=== PATIENT | male | born 1975 | race Caucasian/White ===

== ENCOUNTER 2021-10-21 15:43 | Emergency (ER) | payer BC, SELFPAY ==
[2021-10-21 15:58] VITALS: BP 148/79; PULSE 78; RESP 18; TEMP 36.6; O2SAT 98; BMI 25.7
--- NOTE | 2021-10-21 23:26 | ED_ITS ---
HPI - Wound/Laceration General Chief Complaint: Wound/Laceration Stated Complaint: finger lac Time Seen by Provider: 10/21/21 22:49 Source: patient Mode of arrival: ambulatory Limitations: no limitations History of Present Illness HPI narrative: 46-year-old male who reports he is not up-to-date on tetanus presenting to the ED with complaints of right hand little finger/5th digit laceration that occurred prior to arrival when he was stretching his door at his house he reports that he might of cut himself with the metal not. He denies any thoughts of foreign bodies. He denies any bony tenderness. He denies any other symptoms complaints concerns at this time. Onset (ago): hour(s) (Prior to arrival) Extremity Location: right: hand Place: home Patient tetanus UTD: No Context: accidental Associated symptoms: none Treatments prior to arrival: bandage Related Data Previous Rx's Medication Instructions Recorded cephalexin 500 mg capsule 500 mg PO Q6H 10 Days #40 cap 10/21/21 Allergies Allergy/AdvReac Type Severity Reaction Status Date / Time No Known Allergies Allergy Verified 10/21/21 15:58 Review of Systems Review of Systems: Constitutional : No Fever, No Chills, Cardiovascular : No Chest Pain, No SOB Respiratory : No Dyspnea Gastrointestinal : No abdominal pain Musculoskeletal : No Joint Swelling Skin : positive skin laceration, No Foreign bodies, No rash, No surrounding erythema Neuro : No Weakness, No Numbness/tingling Psych : No SI/HI/thoughts of self injury Yes all other systems are reviewed and are negative [facility] Past Medical History Attestation statement: The following information was validated with the patient. Social History Social History Advance Directives: No Advance Directives Information Provided: No Physical Exam Vital Signs: Vital Signs: Last Vital Signs Temp 97.8 F 10/21/21 15:58 Pulse 78 10/21/21 15:58 Resp 18 10/21/21 15:58 BP 148/79 H 10/21/21 15:58 Pulse Ox 98 10/21/21 15:58 BMI result Body Mass Index 25.7 vital signs have been reviewed as normal and appeared to be correct. Blood pressure normal Heart rate normal. Respiration rate normal. Temperature normal. Oxygen saturation normal. Appearance: Alert. Oriented X3. No acute distress. Head: Normal external exam. Normocephalic. Atraumatic. Eyes: PERRLA. EOMI. Conjunctiva and sclera normal. Eyelids normal. ENT: Pharynx normal. Uvula midline. Moist mucous membranes. Neck: Normal inspection. Neck supple. FROM. CVS: Normal heart rate and rhythm. Respiratory: No respiratory distress. Painless inspiration. Skin: Skin warm and dry. Normal skin color. Normal skin turgor. Patient with superficial laceration 2 cm in length irregular to right hand proximal aspect of the little finger/5th digit no foreign bodies or active bleeding or bony tenderness noted. No rashes/lesions noted. Extremities: Extremities exhibit normal range of motion. Extremities nontender. Neuro: Oriented X 3. No motor deficit. No sensory deficit. Reflexes normal. Normal steady gait. No focal neuro deficits noted. Vascular: + radial pulses/+ 2 distal pedal pulses/+2 dorsalis pedis b/l. Normal cap refill. No cyanosis noted to upper extremity nails and lower extremity toes nails. Course Course Course Narrative: Patient now status post laceration repair with 6 simple running stitch. Tetanus updated. No imaging indicated at this time. Will DC home with symptomatic treatment antibiotics along with instructions to return in 10-14 days for suture removal and to follow up prior if signs of infection. Patient understands agrees the plan. [facility] - Wound/Laceration Medical Records Attestation: I reviewed the patient's medical records. Procedures Laceration Laceration 1: Site: hand Side (If applicable): right Size (cm): 2 Description: linear and irregular Depth: simple, single layer Local Anesthetic: lidocaine 2% Amount of anesthesia used (mL): 5 Pre-repair: wound explored, irrigated extensively, deep structures intact and wound margins revised Skin layer closed with: nylon Size (cm): 4-0 Number of sutures: 6 Discharge Plan Discharge Clinical Impression: Laceration Patient Disposition: Home, Self-Care Instructions: Finger Laceration (ED) Prescriptions: New cephalexin 500 mg capsule 500 mg PO Q6H 10 Days Qty: 40 0RF Referrals: Essie Barksdale PA [Emergency Midlevel Provider] - 10 days (for suture removal)
[2021-10-22] MEDS: Diphth,Pertus(ACell),Tet Adult 0.5 ML SYRINGE IM (00:20)
[2021-10-22] MEDS: Lidocaine HCl 2 % MPF 5 ML VIAL SUBCUT (00:20)
== END 2021-10-22 00:35 | disposition home or self-care (01) ==
LOC: HO.ED 23:34
PROVIDERS: Emergency Provider Internal Medicine
DX: S61.216A Laceration without foreign body of right little finger without damage to nail, initial encounter (principal); S60.416A Abrasion of right little finger, initial encounter; W26.9XXA Contact with unspecified sharp object(s), initial encounter; Y93.9 Activity, unspecified; Y92.9 Unspecified place or not applicable; Y99.9 Unspecified external cause status; Z79.899 Other long term (current) drug therapy
CPT/HCPCS: 12001; 90471; 90715; 99284

== ENCOUNTER 2024-07-23 09:41 | Outpatient (AMB) | payer BC, SELFPAY ==
--- NOTE | 2024-07-23 10:20 | MHC.OFFWIV ---
Intake Vital Signs 07/23/24 10:21 Height 6 ft 2 in Weight 181 lb BMI 23.2 BP 114/60 Blood Pressure Location Lt brachial Position Sitting Respiration 18 Pulse 92 Pulse Source Pulse Oximeter Pulse Oximetry (%) 95 Oxygen Delivery Method Room Air Intake Visit Reasons: EP Flu + 8 days ago, pneumonia? Intake Note: Pt is here today c/o weakness bilateral legs, SOB and coughing, diarrhea with nausea x1wk Patient Tobacco Use Status: Former Tobacco user Allergies No Known Allergies Allergy (Verified 07/23/24 10:31) HPI EP Flu + 8 days ago, pneumonia? HPI Details Worsening cough, shortness of breath and malaise since influenza infection a week ago. PFS Social History Patient Tobacco Use Status: Former Tobacco user Review of Systems Const Reports chills, Reports fatigue, Reports fever(s), Reports headache(s) and Denies weakness ENT Denies dizziness and Reports headache(s) Card Reports dyspnea Resp Reports cough, Reports dyspnea, Reports wheezing and Denies other ( shortness of breath) Musc Denies numbness and Denies tingling Neuro Denies dizziness, Reports headache(s), Denies numbness, Denies tingling, Denies paresthesias and Denies weakness Psych Denies anxiety and Denies depression Endo Reports fatigue Aller/Immun Reports wheezing Physical Exam Vital Signs: Last Vital Signs Pulse 92 07/23/24 10:21 Resp 18 07/23/24 10:21 BP 114/60 07/23/24 10:21 Pulse Ox 95 07/23/24 10:21 Oxygen Delivery Method Room Air 07/23/24 10:21 BMI result Body Mass Index 23.2 Const Other: Appears mildly ill General: no acute distress and well developed Nutritional Appearance: well nourished Orientation/consciousness: patient oriented x3 HEENT Head: Yes normocephalic and Yes atraumatic Eyes General: appearance normal, both eyes and all related structures Pupils: Equal, round and reactive pupils present EOM: EOMs intact bilaterally Neck Other: No increased JVD Resp Other: Diffuse wheezing and crackles with diminished breath sounds at right mid lung field Effort & Inspection: normal respiratory effort Cardio Rate: regular rate Rhythm: regular rhythm Heart sounds: S1 normal heart sound present, S2 normal heart sound present, no gallops, no murmurs and no rubs Neuro General: patient oriented x3 and gait normal Cranial nerves: Yes Equal, round and reactive pupils present Psych Affect: normal affect Assessment & Plan Assessment & Plan (1) Cough: Code(s): R05.9 - Cough, unspecified Plan: Likely pneumonia s/p influenza Start Z-Keven Will give patient albuterol inhaler Will get chest x-ray Rest and get plenty of fluids Call or return to office if not improving or if worsens Orders: Orders XR chest 2V Today R05.9 - Cough, unspecified Medications: New azithromycin (Zithromax Z-Keven) take 500 mg today (day 1), then 250 mg for 4 days (days 2-5) PO 5 days 6 tabs 0RF albuterol sulfate 90 mcg/actuation (Ventolin HFA) 2 puffs inhalation Q4-6H 30 days PRN 8.5 grams 0RF shortness of breath or wheezing Discontinued cephalexin Discontinued Reason: Patient Completed Course 500 mg PO Q6H 10 days 40 caps 0RF Coding Level of Care Code Est Pt Level 3 (17746) Diagnoses Cough R05.9
[2024-07-23 10:21] VITALS: BP 114/60; PULSE 92; RESP 18; O2SAT 95; BMI 23.2
== END 2024-07-23 12:13 | disposition home or self-care (01) ==
PROVIDERS: Visit Provider Family Medicine
DX: R05.9 Cough, unspecified (principal)

== ENCOUNTER 2024-07-23 11:47 | Outpatient (REF) | payer SELFPAY ==
--- NOTE | ~2024-07-23 | XR_ITS ---
CLINICAL HISTORY: R05.9 - Cough, unspecified 2 view chest x-ray Comparison: None Findings: No consolidation or effusion. Normal size heart. No acute fracture. IMPRESSION: 1. No acute findings. This document has been electronically signed by: Andrea Hart MD on 07/23/2024 12:29:56
== END 2024-07-23 11:48 | disposition home or self-care (01) ==
LOC: HO.HMGCX 11:47
PROVIDERS: Visit Provider Nurse Practitioner Family
DX: R05.9 Cough, unspecified (principal)
CPT/HCPCS: 71046

== ENCOUNTER → 2024-07-23 11:49 | Outpatient (BNV) | payer BC, SELFPAY | PROVIDERS: Visit Provider Radiology Diagnostic Radiology | DX: R05.9 Cough, unspecified (principal) | CPT/HCPCS: 71046 ==

== ENCOUNTER 2025-02-01 08:19 | Outpatient (AMB) | payer BC, SELFPAY ==
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
== END 2025-02-01 08:39 | disposition home or self-care (01) ==
LOC: HO.HSM 08:20
PROVIDERS: PCP Internal Medicine; Referring Provider Internal Medicine; Visit Provider Psychiatry & Neurology Neurology
DX: G40.209 Localization-related (focal) (partial) symptomatic epilepsy and epileptic syndromes with complex partial seizures, not intractable, without status epilepticus (principal)
CPT/HCPCS: 99214

== ENCOUNTER 2025-02-22 08:02 | Outpatient (AMB) | payer BC, SELFPAY ==
--- NOTE | 2025-02-22 08:03 | MHC.OFFWIV ---
Intake Vital Signs 02/22/25 08:04 Height 6 ft 2 in Weight 192 lb BMI 24.6 BP 130/84 Blood Pressure Location Lt brachial Position Sitting Respiration 16 Pulse 84 Pulse Source Pulse Oximeter Temp 98.4 F Temp Source Oral Pulse Oximetry (%) 95 Oxygen Delivery Method Room Air Intake Visit Reasons: EP-?pneumonia Patient Tobacco Use Status: Former Tobacco user Allergies No Known Allergies Allergy (Verified 02/22/25 08:04) HPI HPI Comments History of Present Illness Details History of Present Illness - The patient is a 49-year-old male presenting with pneumonia. - He has been having a cough since Thursday, he states that he had a cold with some congestion first. - The patient reports having pneumonia over 10 times since 2016, with the last episode occurring approximately a year ago. - He experiences a unique smell preceding the onset of pneumonia, which he associates with the condition. - The patient reports a persistent cough, shortness of breath, weakness, and a low-grade fever of 99.6?F. - Symptoms began with a smell on Thursday, followed by illness on Thursday, and improvement by Thursday, but worsened again with breathing difficulties. - The patient has previously undergone chest x-rays, which he prefers to avoid due to cost, and seeks medication management instead. - The patient has a history of asthma, which resolved after removing guinea pigs from his environment, and epilepsy, for which he takes medication. - He notes a pattern of pneumonia following colds, with a significant episode in 2016 linked to guinea pig exposure. - He denies fever, chills, CP, SOB, abd pain, or n/v. Physical Exam General: Cooperative, appears weak, experiencing respiratory distress Orientation: Patient oriented x3 Limitations: No limitations Head: Normal to inspection Ears: Hearing grossly normal bilaterally Nose: Normal external nose present Face and sinus: Normal facial exam. No sinus tenderness noted. Eyes: Appearance normal, both eyes and all related structures Neck: Normal visual inspection and Yes full ROM. Respiratory: Able to speak in complete sentences but with effort. Wheezes and rhonchi noted in all lung garcia. Cardiovascular: Regular rate and rhythm. Normal S1 and S2. No m/r/g noted. GI: Normal to inspection. Soft to palpation and nontender, non-distended. Skin: No rashes or lesions noted Patient was informed and verbally consented to the use of an ambient scribe for clinic note documentation during this visit. [facility] Medical History (Updated 02/22/25 @ 08:33 by Jessica Roach PA-C) Complex partial seizures Epilepsy Social History Patient Tobacco Use Status: Former Tobacco user Review of Systems Const All systems reviewed & are unremarkable except as noted in HPI and below Physical Exam Vital Signs: Last Vital Signs Temp 98.4 F 02/22/25 08:04 Pulse 84 02/22/25 08:04 Resp 16 02/22/25 08:04 BP 130/84 02/22/25 08:04 Pulse Ox 95 02/22/25 08:04 Oxygen Delivery Method Room Air 02/22/25 08:04 BMI result Body Mass Index 24.6 Assessment & Plan Assessment & Plan (1) Cough: Code(s): R05.9 - Cough, unspecified Qualifiers: Cough type: acute Qualified Code(s): R05.1 - Acute cough Plan Most likely URI vs CAP vs bronchitis plan - will order a CXR today- pt declined in the office today due to the cost - Prescribe antibiotics and cough medicine, and provide a new inhaler. - If symptoms do not improve, a chest x-ray may be warranted. - Follow-up with a primary care physician and consider referral to a eeg technologist for recurrent pneumonia evaluation. Medications: New amoxicillin-pot clavulanate 875-125 mg 1 tab PO Q12H 20 tabs 0RF 10 days albuterol sulfate 90 mcg/actuation 2 puffs inhalation Q6H PRN 8.5 grams 0RF shortness of breath or wheezing or cough azithromycin For 250 mg dose pack: take 500 mg today (day 1), then 250 mg for 4 days (days 2-5) PO 6 tabs 0RF benzonatate 100 mg PO bid-tid PRN 21 caps 0RF Cough 7 days Coding Level of Care Code Est Pt Level 3 (40658) Diagnoses Acute cough R05.1 Cough type: acute
[2025-02-22 08:04] VITALS: BP 130/84; PULSE 84; RESP 16; TEMP 36.9; O2SAT 95; BMI 24.6
== END 2025-02-22 08:40 | disposition home or self-care (01) ==
PROVIDERS: PCP Internal Medicine; Visit Provider Physician Assistant Medical
DX: R05.1 Acute cough (principal)

== ENCOUNTER 2025-02-22 10:56 | Emergency (ER) | payer BC, SELFPAY ==
--- NOTE | ~2025-02-22 | XR_ITS ---
EXAMINATION: XR CHEST CLINICAL INFORMATION: Pneumonia? COMPARISON: 07/23/2024. TECHNIQUE: PA view of the chest was obtained. FINDINGS: The cardiac, hilar, and mediastinal contours are normal. The lungs are clear bilaterally. No pneumothorax or effusion. No focal osseous or soft tissue abnormality. XR/XR chest 1V IMPRESSION: Normal chest. Electronically signed by: Zain Kramer MD 02/22/2025 12:04 PM EDT
--- NOTE | 2025-02-22 10:59 | ECG_ITS ---
Test Reason : IRREG HEART BEAT Blood Pressure : */* mmHG Vent. Rate : 81 BPM Atrial Rate : 81 BPM P-R Int : 140 ms QRS Dur : 104 ms QT Int : 370 ms P-R-T Axes : 85 72 34 degrees QTcB Int : 429 ms Normal sinus rhythm with sinus arrhythmia Biatrial enlargement Abnormal ECG No previous ECGs available Referred By: Bhupendra Madera Electronically Signed By: ATIF PADILLA
[2025-02-22 11:33] VITALS: BP 152/91; PULSE 84; RESP 16; TEMP 36.4; O2SAT 95; BMI 20.1
--- NOTE | 2025-02-22 11:37 | ED_ITS ---
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 Patient states that he experiences episodes of discomfort that last 5-7 seconds and occur up to 20 to 30 times per day. Patient describes the sensation as tingling or grabbing localized to his left upper chest. Patient identified anxiety as a possible trigger for these episodes and denies any worsening with exertion or physical activity. Patient denies any headaches, dizziness, vision changes, difficulty breathing, SOB, abdominal pain, weakness, numbness, or tingling anywhere else on his body, or any other symptoms. Onset (ago): month(s) (1 month) Related Data Previous Rx's ?Medication ?Instructions ?Recorded albuterol sulfate 90 mcg/actuation 2 puff inhalation Q 4-6H PRN 07/23/24 aerosol inhaler (Ventolin HFA) shortness of breath or wheezing 30 days #8.5 grams azithromycin 250 mg tablet See Rx Instructions PO .COM PLEX 5 07/23/24 (Zithromax Z-Keven) days #6 tabs carbamazepine 200 mg 200 mg PO BID #180 caps 01/07 12/30 capsule,extended release [id number] albuterol sulfate 90 mcg/actuation 2 puff inhalation Q 6H PRN 02/22/25 aerosol inhaler shortness of breath or wheez ing or cough #8.5 grams amoxicillin 875 mg-potassium 1 tab PO Q12H 10 days #20 tabs 02/22/25 clavulanate 125 mg tablet azithromycin 250 mg tablet See Rx Instructions PO .COM PLEX #6 02/22/25 tabs benzonatate 100 mg capsule 100 mg PO bid-tid PRN Cough 7 days 02/22/25 #21 caps Allergies Allergy/AdvReac Type Severity Reaction Status Date / Time No Known Allergies Allergy Verified 02/22/25 11:36 Review of Systems 2 Constitutional: Constitutional: Reports as per HPI Eyes: Eyes: Reports as per HPI ENT: Reports as per HPI Cardiovascular: Cardiovascular: Reports as per HPI Respiratory: Respiratory: Reports as per HPI Gastrointestinal: Gastrointestinal: Reports as per HPI Genitourinary: Genitourinary: Reports as per HPI Musculoskeletal: Musculoskeletal: Reports as per HPI Integumentary/Breasts: Skin/Breast: Reports as per HPI Neurologic: Reports as per HPI Psychiatric: Psychiatric: Reports as per HPI Endocrine: Endocrine: Reports as per HPI Hematologic/Lymphatic: Hematologic/Lymphatic: Reports as per HPI Allergic/Immunologic: Allergic/Immunologic: Reports as per HPI [facility] Past Medical History Attestation statement: The following information was validated with the patient. Source: old records reviewed and nursing notes reviewed Medical History Complex partial seizures Epilepsy Social History Social History Patient Tobacco Use Status: Former Tobacco user Advance Directives: No Advance Directives Information Provided: Yes Physical Exam ED Vital Signs: Vital Signs - 24 hr 02/22/25 11:33 02/22/25 12:28 02/22/25 14:09 Temperature 97.5 F 98.5 F 98.4 F Pulse Rate 84 74 86 Respiratory Rate 16 16 18 Blood Pressure 152/91 H 135/80 133/71 Pulse Oximetry 95 95 96 Oxygen Delivery Method Room Air Room Air Room Air 02/22/25 14:11 Temperature 98.4 F Pulse Rate 86 Respiratory Rate 18 Blood Pressure 133/71 Pulse Oximetry 96 Oxygen Delivery Method Room Air BMI result Body Mass Index 20.1 Const General: cooperative, no acute distress, alert and awake Nutritional Appearance: well nourished Orientation/consciousness: patient oriented x3 HENMT Head: Yes normal to inspection and Yes atraumatic Ears: hearing grossly normal bilaterally and external ears normal General nose exam: Normal external nose present, no nasal discharge noted and no epistaxis Face and sinus: Yes normal facial exam, No abrasion and No laceration Mouth: Normal oral and palatal mucosa present, no drooling and no muffled voice Eyes General: appearance normal, both eyes and all related structures Periorbital: periorbital findings normal Eyelids: Yes eyelids normal Conjunctivae: conjunctivae normal Pupils: Equal, round and reactive pupils present EOM: EOMs intact bilaterally Neck Neck: Yes normal visual inspection and Yes full ROM Resp Effort & Inspection: normal respiratory effort and able to speak in complete sentences Neuro General: patient oriented x3, moves all extremities and CN's II-XI intact bilaterally Cranial nerves: Yes Equal, round and reactive pupils present Cognition (Neuro): normal cognition Extrem General: Yes normal to inspection, Yes full ROM and Yes capillary refill normal Psych Appearance: grossly normal Mental Status: mental status grossly normal Affect: normal affect Attitude: cooperative Thought process: Normal thought process present Thought content: Normal thought content present Insight: Good insight present (Psych) Course Course Course Narrative: RME: 49-year-old male presents to ED for 1 month intermittent chest pain and palpitation without any shortness of breath. Patient states heart racing feeling anxious that occurs every day off and on. Patient denies any recent long travel recent surgery. 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 Patient's physical exam was unremarkable. Patient's blood work was unremarkable. Patient's EKG was unremarkable. Patient's chest x-ray showed no acute process. Patient's clinical presentation is most consistent with atypical chest pain - possibly associated with anxiety. I explained my physical exam findings as well as all test results to the patient. I answered all questions asked by the patient. I stressed the importance of the patient taking his medication as directed (either prescribed or as the over the counter packaging recommends). I stressed the importance of the patient following up with his primary care provider. I stressed the importance of the patient returning to the emergency department immediately if his symptoms were to worsen or if he were to develop any dizziness, shortness of breath, difficulty breathing, chest pain, blurry vision, loss of vision, nausea, vomiting, abdominal pain, fever, chills, back pain, or any other complaints. Patient verbalized agreement and understanding with this treatment plan and discharge. Differential Diagnosis Differential Diagnoses: The differential diagnosis associated with the presentation includes Chest pain Chest wall pain Anxiety NSTEMI STEMI Admission/Observation Consideration of admission/observation: Escalation of care including admission/observation considered Patient would have been admitted to the hospital had his work up had any findings where hospital admission was appropriate and his clinical presentation warranted hospital admission. Lab Data [facility] Lab Attestation statement: I reviewed the patient's lab results. My interpretation of these results are in the [facility] Rationale portion of this note. 02/22/25 12:00 02/22/25 12:00 Labs: Lab Results 02/22/25 Range/Units 12:00 WBC 6.9 (4.8-10.8) X10*3/uL RBC 4.93 (4.60-5.80) X10*6/uL Hgb 15.1 (14.0-18.0) g/dl Hct 43.2 (42.0-52.0) % MCV 87.6 (80.0-98.0) fL MCH 30.6 (27.0-33.0) pg MCHC 35.0 (31.0-36.0) g/dl RDW 13.0 (11.0-16.0) % Plt Count 267 (160-400) X10*3/uL MPV 8.7 L (9.4-12.4) fL Immature Gran % (Auto) 0.1 (0.0-0.4) % Neut % (Auto) 53.3 (45-73) % Lymph % (Auto) 28.9 (20-40) % Osborne % (Auto) 10.0 (2-11) % Eos % (Auto) 7.1 H (0-4) % Baso % (Auto) 0.6 (0-2) % Lymph # (Auto) 2.0 (1.2-4.9) X10*3/uL Osborne # (Auto) 0.7 (0.1-1.2) X10*3/uL Eos # (Auto) 0.5 H (0.0-0.4) X10*3/uL Baso # (Auto) 0.0 (0.0-0.2) X10*3/uL Abs Immat Gran (auto) 0.01 (0.00-0.03) X10*3/uL Absolute Neuts (auto) 3.7 (2.0-8.3) x10*3/uL Absolute Nucleated RBC 0.000 (0.0-0.012) X10*3/uL Nucleated RBC % (auto) 0.0 (0.0-0.2) /100WBC PT 11.7 (10.9-12.4) SEC INR 1.0 (0.9-1.1) APTT 28.4 (26.7-34.1) SEC Sodium 142 (135-145) mmol/L Potassium 4.1 (3.3-5.1) mmol/L Chloride 108 (96-108) mmol/L Carbon Dioxide 26 (22-29) mmol/L Anion Gap 12 (12-20) BUN 10 (9-16) mg/dL Creatinine 0.87 (0.5-1.4) mg/dL Estim Creat Clear Calc 94.2 Estimated GFR > 60 Random Glucose 95 (60-115) mg/dL Calcium 9.6 (8.4-10.2) mg/dL Magnesium 2.1 (1.6-2.6) mg/dL Total Bilirubin 0.4 (0.0-1.0) mg/dL AST 18 (5-37) U/L ALT 18 (0-40) U/L Alkaline Phosphatase 100 (39-117) U/L Troponin I High Sens < 2.7 (<3.5-35.0) ng/L Total Protein 8.2 H (6.5-8.0) g/dL Albumin 5.0 (3.5-5.0) g/dL TSH 2.56 (0.32-4.0) uIU/mL Independent Interpretation I performed an independent interpretation of an: EKG and Plain X-Ray Interpretation: My interpretation is in agreement with the radiologist's impression of this imaging study. L Reason for Exam: Pneumonia? EXAMINATION: XR CHEST CLINICAL INFORMATION: Pneumonia? COMPARISON: 07/23/2024. TECHNIQUE: PA view of the chest was obtained. FINDINGS: The cardiac, hilar, and mediastinal contours are normal. The lungs are clear bilaterally. No pneumothorax or effusion. No focal osseous or soft tissue abnormality. XR/XR chest 1V IMPRESSION: Normal chest. Electronically signed by: Zain Kramer MD 02/22/2025 12:04 PM EDT Dictated By: Zain Kramer MD Signed By: Electronically signed by Zain Kramer MD 02/22/25 1204 I independently interpreted this EKG and am in agreement with the below findings: Vent. Rate: 81 BPM Atrial Rate: 81 BPM P-R Int: 140 ms QRS Dur: 104 ms QT Int: 370 ms P-R-T Axes: 85 72 34 degrees QTcB Int: 429 ms Normal sinus rhythm with sinus arrhythmia Biatrial enlargement No previous ECGs available DD/ 1103 Radiology Impression Discussion of test interpretation with radiology: I have reviewed the radiologist's reading. Discharge Plan Discharge Clinical Impression: Chest pain Qualifiers: Chest pain type: unspecified Qualified Code(s): R07.9 - Chest pain, unspecified Patient Disposition: Home, Self-Care Instructions: Chest Pain (DC) Additional Instructions: Your work up today was reassuring there is NO emergent process. IF you are prescribed home medications and/or you are taking over the counter medications at home - it is very important you continue to do so as prescribed / directed unless told otherwise. Follow up with your primary care provider. Return to the emergency department immediately if your symptoms worsen or if you develop any numbness, tingling, dizziness, shortness of breath, difficulty breathing, chest pain, blurry vision, loss of vision, nausea, vomiting, abdominal pain, fever, chills, back pain, or any other complaints. Please see the information below about our Patient Portal. If you are not yet enrolled in the [facility] Patient Portal, you will receive an enrollment email invitation following your visit to any [facility] setting. You may also self-enroll in the Patient Portal by visiting our website: [email or web address] The following information is required to access the Patient Portal: - Your [facility] Medical Record Number - Your personal home email address (must match what is in your electronic medical record, Registration staff can assist with this) - Name - Date of Capabilities of the Patient Portal: - Message some providers - View upcoming appointments - Access your health summary, medical history, and visit history - View current conditions and allergies - View procedure and lab results - View your medications, including guidelines, side effects, and precautions - Complete pre-appointment questionnaires requested by your provider - Ready summary reports of your office visits and procedures To access the Patient Portal Mobile [employer], follow these directions: - Search [employer] in the [employer] Store or [employer] Store - Download the [employer] - Search for [facility] - Enter your login/password Prescriptions: No Action azithromycin [Zithromax Z-Keven] 250 mg tablet See Rx Instructions PO .COMPLEX 5 Days Qty: 6 0RF Rx Instructions: take 500 mg today (day 1), then 250 mg for 4 days (days 2-5) PO albuterol sulfate [Ventolin HFA] 90 mcg/actuation HFA aerosol inhaler 2 puff inhalation Q4-6H PRN (Reason: shortness of breath or wheezing) 30 Days Qty: 8.5 0RF carbamazepine 200 mg capsule, ER multiphase 12 hr 200 mg PO BID Qty: 180 1RF azithromycin 250 mg tablet See Rx Instructions PO .COMPLEX Qty: 6 0RF Rx Instructions: For 250 mg dose pack: take 500 mg today (day 1), then 250 mg for 4 days (days 2-5) PO benzonatate 100 mg capsule 100 mg PO bid-tid PRN (Reason: Cough) 7 Days Qty: 21 0RF albuterol sulfate 90 mcg/actuation HFA aerosol inhaler 2 puff inhalation Q6H PRN (Reason: shortness of breath or wheezing or cough) Qty: 8.5 0RF amoxicillin-pot clavulanate 875-125 mg tablet 1 tab PO Q12H 10 Days Qty: 20 0RF Referrals: [facility] [Provider Group] Referral Note: Call to establish and follow up with a receiving associate. Charles Shelby III, MD [Primary Care Provider, Medical] Interventions: ED Discharge Assessment Last Done: 02/22/25 14:11 Discharge Date/Time: 02/22/25 14:12 Print Language: Wolof
[2025-02-22 12:08] LABS: MANUAL DIFF FLAG NO
[2025-02-22 12:09] LABS: Hematocrit 43.2 % (42.0-52.0); Hemoglobin 15.1 g/dl (14.0-18.0); Imm Gran Abs Auto 0.01 X10*3/uL (0.00-0.03); Imm Gran Pct Auto 0.1 % (0.0-0.4); Lymphocytes Absolute Auto 2.0 X10*3/uL (1.2-4.9); Mean Corpuscular HGB Conc 35.0 g/dl (31.0-36.0); Mean Corpuscular Hemoglobin 30.6 pg (27.0-33.0); Mean Corpuscular Volume 87.6 fL (80.0-98.0); NRBC Abs Auto 0.000 X10*3/uL (0.0-0.012); NRBC Pct Auto 0.0 /100WBC (0.0-0.2); Platelet Count 267 X10*3/uL (160-400); Red Blood Count 4.93 X10*6/uL (4.60-5.80); White Blood Count 6.9 X10*3/uL (4.8-10.8)
[2025-02-22 12:22] LABS: INTERNATIONAL NORM RATIO 1.0 (0.9-1.1); Prothrombin Time 11.7 SEC (10.9-12.4)
[2025-02-22 12:24] LABS: Partial Thromboplastin Time 28.4 SEC (26.7-34.1)
[2025-02-22 12:25] LABS: Alanine Aminotransferase 18 U/L (0-40); Albumin Level 5.0 g/dL (3.5-5.0); Alkaline Phosphatase 100 U/L (39-117); Anion Gap 12 (12-20); Aspartate Amino Transferase 18 U/L (5-37); Blood Urea Nitrogen 10 mg/dL (9-16); Calcium 9.6 mg/dL (8.4-10.2); Carbon Dioxide 26 mmol/L (22-29); Chloride 108 mmol/L (96-108); Creatinine Clr Calc Pharmacy 94.2; Estimated Glomerular Filt Rate > 60; Potassium 4.1 mmol/L (3.3-5.1); Sodium 142 mmol/L (135-145); Total Protein 8.2 g/dL (6.5-8.0)
[2025-02-22 12:28] VITALS: BP 135/80; PULSE 74; RESP 16; TEMP 36.9; O2SAT 95
[2025-02-22 12:34] LABS: Troponin-I High Sensitivity < 2.7 ng/L (<3.5-35.0)
[2025-02-22 13:13] LABS: Magnesium 2.1 mg/dL (1.6-2.6)
[2025-02-22 14:09] VITALS: BP 133/71; PULSE 86; RESP 18; TEMP 36.9; O2SAT 96
[2025-02-22 14:11] VITALS: BP 133/71; PULSE 86; RESP 18; TEMP 36.9; O2SAT 96
== END 2025-02-22 14:12 | disposition home or self-care (01) ==
PROVIDERS: Physician Assistant; Physician Assistant Medical; Emergency Provider Emergency Medicine; PCP Internal Medicine
DX: R07.89 Other chest pain (principal); Z79.899 Other long term (current) drug therapy
CPT/HCPCS: 36415; 71045; 80053; 83735; 84443; 84484; 85025; 85610; 85730; 93005; 99283; 99284

== ENCOUNTER → 2025-02-22 10:59 | Outpatient (BNV) | payer BC, SELFPAY | PROVIDERS: Emergency Provider Emergency Medicine; PCP Internal Medicine; Visit Provider Internal Medicine | DX: I51.7 Cardiomegaly (principal) | CPT/HCPCS: 93010 ==

== ENCOUNTER → 2025-02-22 11:36 | Outpatient (BNV) | payer BC, SELFPAY | PROVIDERS: PCP Internal Medicine; Visit Provider Radiology Diagnostic Radiology | DX: R07.89 Other chest pain (principal) | CPT/HCPCS: 71045 ==